=== PATIENT | female | born 1940 | race Caucasian/White ===

== ENCOUNTER 2016-09-26 10:39 | Emergency (ER) | payer MEDICARE, MEDICAID ==
[~2016-09-26] VITALS: Ht 154.9 cm; Wt 65.8 kg
[~2016-09-26 10:39] MED LIST: AMLO5TAB PO; ANTIVERT GENERI25 MG PO; ASPIRIN ADULT L81 M2 PO; BENICAR40 MG PO; FLECAINIDE ACET50 MG PO; HYDROCHLOROTHIA25 M1 PO; LEVOTHYROXIN0.075 M2 PO; METOPROLOL SUCC25 M2 PO; MOBIC15 MG PO; NAPROSYN 375MG375 MG PO; PRAVACHOL 40MG40 MG PO; PRAVACHOL40 MG PO; RANITIDINE 150150 MG PO; RANITIDINE150 M1 PO; ZOFRAN ODT4 MG PO
[2016-09-26 10:59] LABS: HEMOGLOBIN 12.3 g/dL (12.2-16.2); LYMPH # 1.3 K/mm3 (0.7-4.5); LYMPH % 26.7 % (10-50.0)
--- NOTE | 2016-09-26 11:07 | Emergency Room Report ---
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 N Clinical Suspician of Infection? N Mental Status: 1 - Regular (Normal Baseline) Sepsis Risk:Low Sepsis Risk Have you (or family members/close friends) recently traveled outside the [place]? N If Yes, where/when: Have you had exposure to infectious disease within the past month? N TB? Other? Specify: Patient states she felt her normal self last night she states this morning when she got up she felt her heart beating irregular and perhaps racing she states she has lightheadedness when she stands up when I ask her she feels like she is going to pass out at that time she states she wasn't sure if she felt like that or not. She denied any pain no headache chest pain abdominal pain denied any vomiting or diarrhea. He states she did have nausea. She denies any dehydration she denies any fevers or chills or cough or burning on urination. She states currently she does not feel lightheadedness and currently does not feel any palpitations or nausea Comment 232 labs still read but all back but ua. CT head and chest x-ray read by radiologist as negative. There has not been any arrhythmia monitor. Call out to Dr. Sanz 236 pt states can give urine sample now 239 dw [facility] BP, palpitations, lightheadedness, nausea, labs etc. states DC home, follow up in office tommorrow. states very familiar with patient. ALLERGIES Coded Allergies: codeine (NA-NAUSEA/VOMITING 09/04/15) Home Medications Active Scripts Flecainide Acetate 100 MG PO BID #60 TAB Ref 1 Prov: 06/22/15 Ondansetron (Zofran 4MG Odt) 4 MG PO Q6HP PRN NAUSEA AND VOMITING #20 TAB Prov: 09/22/16 Reported Medications Metoprolol Succinate 25 MG PO DAILY #30 HYDROCHLOROTHIAZIDE (Hydrochlorothiazide) 25 MG PO TID #30 Levothyroxine Sodium 75 MCG PO DAILY #30 Aspirin 81 MG PO DAILY PRAVASTATIN SODIUM (Pravastatin Sodium) 40 MG PO QHS RANITIDINE HCL (Ranitidine HCl) 150 MG PO BID Olmesartan Medoxomil (Benicar) 40 MG PO DAILY History Medical History General CAD? No Angina: Yes MD: No Hypertension? Yes Hyperlipidemia? Yes CHF? No DVT? No PE? No COPD? No Asthma? No Anemia? No GERD? Yes Gastric ulcers? No GI Bleed? No Hernia? Yes Thyroid Problems? No Hypothyroidism? No CVA? No Seizures? No Diabetes? No End Stage Renal Disease? No UTI? No Stones? No GB Disease: No Nephritic Syndrome? No Asplenia? No Hepatitis? No Sickle Cell Disease? No Arthritis? No Migraines? No Cataracts? No Glaucoma? No MRSA? No HIV? No TB? No Anxiety? Yes Depression? No Cancer? No More? No Immunization Hx DT/Tetanus > 10 Years Ago Flu 2014-16FSN Pneumonia Received In Past Surgical Hx Previous Surgery?Y PACEMAKER Family History Family Hx Diabetes Yes CAD Yes Hypertension No Hyperlipidemia No Cancer Yes TB No Social History Smoking Hx Smoker: Never Smoker Tobacco: No Alcohol Alcohol: No Review of Systems All Other Systems Reviewed and Negative Physical Exam Vital Signs Vital Signs Date Time Temp Pulse Resp B/P Pulse O2 O2 Flow FiO2 Ox Delivery Rate 09/26 1401 70 16 179/86 96 09/26 1224 72 193/90 09/26 1224 73 16 193/90 98 09/26 1223 74 195/94 09/26 1223 73 206/93 09/26 1044 98.9 70 16 127/79 95 General Appearance: Nontoxic Head: Normocephalic, without obvious abnormality, atraumatic. Eyes: conjunctiva/corneas clear ENT: Mucous membranes moist. Neck: No jugular venous distention. Cardiac: regular rate and rhythm Lungs: Clear to auscultation bilaterally Abdomen: Nontender, Nondistended, positive bowel sounds, no rebound : No CVA tenderness Extremities: no edema Musculoskeletal: No chest wall tenderness Skin: No rashes or lesions to exposed skin. Neurologic: Alert and oriented x3 Cranial nerves intact Strength 5 out of 5 Sensation intact to light touch holds both legs off the bed without drift Finger to nose intact Psychiatric: Normal affect (Alfredo RIVERA, Quintin) General Appearance normal appearance Respiratory Status No: respiratory distress. Cardiovascular normal exam Neurologic alert Medical Decision Making LABS/Meds/Orders Pt receiving controlled substance in ED? No Results/Orders Laboratory Tests 09/26/16 1440: Urine Color YELLOW, Urine Appearance SL CLOUDY, Urine pH 6.0, Ur Specific [place] 1.015, Urine Protein NEGATIVE, Urine Ketones NEGATIVE, Urine Blood NEGATIVE, Urine Nitrate NEGATIVE, Urine Bilirubin NEGATIVE, Urine Urobilinogen 0.2, Ur Leukocyte Esterase 1+ H, Urine Glucose NEGATIVE 09/26/16 1050: Sodium 142, Potassium 3.9, Chloride 105, Carbon Dioxide 29, BUN 32 H, Creatinine 1.5 H, Estimated Creat Clear 32 L, Estimated GFR (MDRD) 34 L, Glucose 118 H, Calcium 8.8, Total Bilirubin 0.4, AST 17, ALT 22, Alkaline Phosphatase 88, Creatine Kinase 34, CK-MB (CK-2) Rel Index 1.5, CK and CKMB Interp < 0.5, Troponin I < 0.02, Total Protein 6.7, Albumin 3.3 L, Globulin 3.4 H, Albumin/Globulin Ratio 1.0 L, WBC 4.9, RBC 3.89 L, Hgb 12.3, Hct 37.1, MCV 95.1, RDW 13.4, Plt Count 192, MPV 8.2, Gran % 62.7, Gran # 3.1, Lymphocytes % 26.7, Monocytes % 6.5, Eosinophils % 3.6, Basophils % 0.5, Lymphocytes # 1.3, Monocytes # 0.3, Eosinophils # 0.2, Basophils # 0.0, PUBS MCHC 33.3, MCH 31.6 H Current Medication Orders Sig/Aakash Start time Last Medication Dose Route Stop Time Status Admin Levofloxacin 500 MG ONCE ONE 09/26 1500 AC PO 09/26 1501 Sodium Chloride 10 ML PRN PRN 09/26 1100 AC IV 09/27 1050 Orders Procedure Date/time Status DIET-NOTHING BY MOUTH 09/[address] HEAD REQ 09/26 1113 Complete ORTHOSTATIC B/P 09/26 1107 Active URINALYSIS/COMPLETE 09/26 1107 Complete ELECTROCARDIOGRAM REQUEST 09/26 1050 Active IV SALINE LOCK 09/26 1050 Active METAL WEIGHER 09/26 1050 Active CBC WITH AUTO DIFF 09/26 1050 Complete CARDIAC ENZYMES 09/26 1050 Complete CHEM 12 PROFILE 09/26 1050 Complete 12 LEAD EKG-GRISELDA (INITIAL) 09/26 UNK Active CM/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 Rhythm Paced Rhythm Rate 70 Ectopy No Comments nonspecific ekg Departure Departure Time of Disposition 1452 Disposition DC Home or Self Care(routine) Clinical Impression Primary Impression: Lightheaded Secondary Impressions: Hypertension Qualifiers: Hypertension type: essential hypertension Qualified Code: I10 - Essential (primary) hypertension UTI (urinary tract infection) Qualifiers: Urinary tract infection type: acute cystitis Hematuria presence: without hematuria Qualified Code: N30.00 - Acute cystitis without hematuria Condition STABLE Referrals Griselda RIVERA,Claudio (Family) Patient Instructions DI for Urinary Tract Infection (UTI), Dizziness, Nonvertigo Additional Instructions Dr Sanz states to take your blood pressure medicine as directed follow up in [facility] office tommorrow for recheck around noon, call in morning for appointment return if worse to ER tonight Discharge Counseling Counseled pt/family regarding diagnosis, test results, medications/RX, home care, follow up needs Prescriptions Current Visit Scripts SULFAMETHOXAZOLE W/TRIMETHOPRI (Bactrim Ds Tab) 1 TABLET PO BID #14 TAB ED Critical Care Critical Care No at [id number]
[2016-09-26 11:24] LABS: BUN 32 mg/dL (7-18)
[2016-09-26 11:35] LABS: GFR (ESTIMATED) 34 ML/MIN (59-)
--- NOTE | 2016-09-26 12:15 | RADIOLOGY REPORT PS360 ---
CHEST(2 VIEWS-NOT PORTABLE) HISTORY: lightheaded ORDERING PHYSICIAN: Quintin Fuentes MD PATIENT AGE: 76 years COMPARISON: 06/21/2015 FINDINGS: Normal heart size. Bipolar cardiac pacemaker is present. No CHF. There are mild chronic changes in the right lung base. The lungs are otherwise clear. No acute bony anomalies. There is a small hiatal hernia IMPRESSION: 1. No acute finding. 2. Cardiac pacemaker device present with mild right basilar fibrotic change. 3. Hiatal hernia
--- NOTE | 2016-09-26 12:15 | RADIOLOGY REPORT PS360 ---
CT HEAD W/O CONTRAST HISTORY: LIGHTHEADEDNESS ORDERING PHYSICIAN: Qunitin Fuentes MD PATIENT AGE: 76 years COMPARISON: None TECHNIQUE: Axial images obtained without contrast. Brain and bone windows reviewed. FINDINGS: No midline shift, mass effect, intracranial hemorrhage, hydrocephalus, or extra-axial fluid collection is evident. The calvarium has an unremarkable appearance. No mastoid effusion. The visualized paranasal sinuses are unremarkable. IMPRESSION: Negative CT head without contrast. No acute finding.
[2016-09-26 14:47] LABS: URINE BILIRUBIN - DIPSTICK NEGATIVE (NEG); URINE BLOOD NEGATIVE (NEG)
[2016-09-26] MEDS ORDERED: BACTRIM DS 8001 TA1 PO (14:56)
[2016-09-26 14:57] LABS: URINE SQUAMOUS CELLS OCC #/hpf (0-5)
[2016-09-26 15:28] VITALS: BP 193/98
== END 2016-09-26 15:29 | disposition home or self-care (01) ==
LOC: ER 10:39
PROVIDERS: Emergency Medicine
DX: R42 Dizziness and giddiness (principal); I10 Essential (primary) hypertension; N30.00 Acute cystitis without hematuria